=== PATIENT | male | born 1965 | race Caucasian/White ===

== ENCOUNTER 2016-04-13 19:01 | Emergency (ER) | payer MEDICARE ==
[2016-04-13 19:18] VITALS: BP 124/73; PULSE 96; RESP 16; O2SAT 96
--- NOTE | 2016-04-13 20:47 | ED.REPORT ---
HPI-URI / Cough / Cold Date of Service Apr 13, 2016 ED Provider: MD Kendall This is 50 year old male who is an everyday smoker with a history of chronic hip pain presenting to the emergency department complaining of cough that began 3 days ago. Describes productive cough, dyspnea, and pain with inspiration. Denies fever, chills, nausea, vomiting, abdominal pain, diarrhea, constipation, or sore throat. Nursing Notes Stated Complaint: HURTS TO BREATH Chief Complaint: Respiratory Complaints Nursing Notes Reviewed: Yes Allergies: Coded Allergies: No Known Allergies (Unverified Allergy, Unknown, 06/18/15) No Active Prescriptions or Reported Meds General Time Seen by MD: 20:47 Chief Complaint Cough, productive... Hx Obtained From: Patient Arrived By: Walk-in Onset Occurred: 3 days ago Symptom Duration: Since onset Severity: Current: Mild Pertinent Negative: Pt denies other symptoms Recent Healthcare: No recent doctor visit, No recent hospitalization Similar Sx Previous: No Past Medical History Past Medical History Chronic hip pain Arthritis Past Surgical History none reported Smoking History Current Every Day Smoker Social History Alcohol Use: Denies alcohol use Drug Use: Denies drug use Ambulatory Status Independent Review of Systems Constitutional: Denies: Chills, Fever Ears / Nose / Throat: Denies: Sore throat Respiratory: Reports: Dyspnea on exertion, Prod cough, white, Shortness of breath GI: Denies: Abdominal pain, Nausea, Vomiting Complete sys rev & neg: except as marked. Physical Exam Initial Vital Signs Vital Signs (First) Date Time Temp Pulse Resp B/P Pulse Ox O2 Delivery O2 Flow Rate FiO2 04/13/16 19:18 36.6 96 16 124/73 96 Room Air 04/13/16 22:15 3 Initial VS: Reviewed Head / Eyes: Atraumatic, Normocephalic, PERRL Cardiovascular: Regular rate & rhythm, Heart sounds normal, Intact distal pulses Extremities: Vascular intact, Neuro intact, No swelling, No tenderness Skin: Warm, Dry, No cyanosis Neurologic: Alert, Oriented, Nonfocal Psychiatric: Mood/affect normal, Behavior normal, Normal thought content General/Constitutional: Awake, Alert ENT: Airway patent, Mucous membranes moist, Pharynx NL, Tympanic membs NL, Ext aud canal NL, Nose exam NL, No sinus tenderness Resp Distress / Stridor: Positive: Resp distress mild Wheezing / Retractions: Positive: Wheeze insp/exp diffuse Neck: Supple, No meningismus, Full range of motion, No adenopathy, No swelling , Non-tender, No JVD Cardiovascular: Heart rate NL, Regular rhythm, Heart sounds NL, Cap refill not delayed, Peripheral circulation NL, Pulses = bilaterally Interpretation & Diagnostics Interpretation & Diagnostics: CHEST X-RAY IMPRESSION: 1. An oval density in the left lower lung zone suspicious for focal pneumonia. Recommend followup chest x-ray to resolution. 2. Old granulomatous disease in the right lower lung zone. Dictated by: Harsh Coffey M.D. on 04/13/2016 at 21:13 Approved by: Harsh Coffey M.D. on 04/13/2016 at 21:14 CT ANGIO CONCLUSION: No CT evidence of PE. Pleural based pneumonia in the lingula. Pronounced emphysema. There is some fluid within the bronchi of the right middle lobe. emphysema. Lab Results Interpretation Result Diagram: 04/13/16212704/13/162127 Test 04/13/16 21:28 04/14/16 00:45 White Blood Count 11.7th/mm3 (3.8-10.1) Red Blood Count 4.48mil/mm3 (4.40-5.80) Hemoglobin 13.2g/dL (13.8-17.2) Hematocrit 39.1% (41.0-50.0) Mean Corpuscular Volume 87.3fL (81-100) Mean Corpuscular Hemoglobin 29.5pg (27.0-35.0) Mean Corpuscular Hemoglobin Concent 33.8% (32.0-37.0) Red Cell Distribution Width 13.6% (12.3-15.4) Platelet Count 286bil/L (150-400) Neutrophils (%) (Auto) 76.7% (40-74) Lymphocytes (%) (Auto) 12.1% (14-46) Monocytes (%) (Auto) 9.6% (4-12) Eosinophils (%) (Auto) 1.0% (0-5) Basophils (%) (Auto) 0.4% (0-3) D-Dimer 2.0mg/L (<0.50) Sodium Level 132mEq/L (134-144) Potassium Level 4.3mEq/L (3.5-5.2) Chloride Level 93mEq/L (97-108) Carbon Dioxide Level 27mmol/L (18-29) Blood Urea Nitrogen 8mg/dL (6-24) Creatinine 0.62mg/dL (0.76-1.27) Estimat Glomerular Filtration Rate 145mL/min (>59) Glucose Level 112mg/dL (60-99) Calcium Level 8.5mg/dL (8.5-10.1) Total Bilirubin 0.5mg/dL (0.0-1.2) Aspartate Amino Transf (AST/SGOT) 35U/L (0-50) Alanine Aminotransferase (ALT/SGPT) 35U/L (0-44) Alkaline Phosphatase 107U/L (25-150) Pro-B-Type Natriuretic Peptide 206.0pg/mL (0-121) Total Protein 8.4g/dL (6.4-8.4) Albumin 3.3g/dL (3.4-5.0) Hold Kaplan Top Tube Received (Received) Troponin T 0.010ug/L (0.0-0.011) ECG Interpretation ECG Interpretation: NSR at a rate of 85 Left atrial enlargement Time: 22:54 Interpreted by: ED physician Re-Eval/Medical Decision Med Decision/Clinical Course 50-year-old heavy smoker presents with pleuritic chest pain and cough. He is found to have pneumonia and signs of emphysema. Pulmonary emboli and myocardial infarction were ruled out. His pneumonia severity index score and curb 65 score all commensurate with outpatient treatment. He will be placed on high-dose amoxicillin and doxycycline. Inhalers have been provided as well as a course of prednisone. I do recommend close outpatient follow-up. He is also to follow up with his primary care regarding the CT scan findings. Re-Evaluation/Progress #1: Time of Eval: 22:55 Re-Evaluation/Progress Note: Discussed need for CT Re-Evaluation/Progress #2: Time of Eval: 00:31 Re-Evaluation/Progress Note: Lung shaw clear, discussed CT restults and smoking cessation. Plan for d/c, all questions addressed Counseled Regarding: Diagnosis, Lab results, Need for follow-up, When/why to return to ED Discharge & Departure Impression: Primary Impression: Pneumonia Pneumonia type: due to unspecified organism Laterality: unspecified laterality Lung location: unspecified part of lung Qualified Code: B99.9 - Unspecified infectious disease Additional Impression: COPD (chronic obstructive pulmonary disease) COPD type: unspecified COPD Qualified Code: J44.9 - Chronic obstructive pulmonary disease, unspecified Disposition: Home Discharge Condition All VS Reviewed: Yes Condition: Stable Patient Instructions: Chronic Obstructive Pulmonary Disease (ED), Community- acquired Pneumonia (ED) Additional Instructions: Take amoxicillin three times a day for 7 days, doxycycline twice daily for 7 days, albuterol 2 puffs every 4 hours, prednisone once daily for 3 days, Percocet 1-2 every 6 hours as needed for pain control. Follow up with your primary care provider in the next 48 hours for further evaluation. Return to the emergency department if you develop any new or worsening shortness of breath or any other symptoms. Your CT scan of the chest demonstrates that she would have emphysema. You need to quit smoking. That is the only thing that is going to prevent further lung damage. Discussed this with her primary care physician as you may need further testing including pulmonary function tests. Referrals: Karin Ga MD (PCP) Scribe Attestation Portions of this note were transcribed by Derek Chowdhury. I, Dr. Argueta personally performed the history, physical exam and medical decision-making; I reviewed and confirmed the accuracy of the information in the transcribed note. Signed by: Derek Chowdhury. 04/13/2016, 03:00. Mayank Argueta DO Apr 13, 2016 20:47 DEREK CHOWDHURY Apr 13, 2016 20:54
[2016-04-13] MEDS ORDERED: HYDROcodone-APAP 5-325 mg Tablet PO ONE (20:50)
[2016-04-13] MEDS ORDERED: 0.9% Sodium Chloride 1,000 ML IV ONE (20:50)
[2016-04-13] MEDS ORDERED: Albuterol-Ipratropium 3 mL Inhalation Solution NEB ONE (20:50)
--- NOTE | 2016-04-13 21:16 | DRSVH ---
PROCEDURE: X-RAY CHEST, TWO VIEWS ([id number]) INDICATIONS: cough, pleuritic pain TECHNIQUE: 2 views of the chest were acquired. COMPARISON: [facility], CR, XR CHEST 1VW (PORTABLE), 06/18/2015, 9:30. FINDINGS: Surgical changes and devices: None. Lungs and pleura: There is an oval density in the left lower lobe suspicious for focal infiltrate. A calcified granuloma in is present in the right lower lung zone. No pleural effusions or pneumothorax . Mediastinum: Mediastinal contours are normal. Heart size is normal. Bones and chest wall: No suspicious bony abnormalities. Soft tissues appear unremarkable. IMPRESSION: 1. An oval density in the left lower lung zone suspicious for focal pneumonia. Recommend followup [address] st x-ray to resolution. 2. Old granulomatous disease in the right lower lung zone. Dictated by: Harsh Coffey M.D. on 04/13/2016 at 21:13 Approved by: Harsh Coffey M.D. on 04/13/2016 at 21:14
[2016-04-13 21:32] VITALS: PULSE 88; RESP 20; O2SAT 97
[2016-04-13] MEDS ORDERED: cefTRIAXone Inj 2,000 MG in Dextrose 5% Minibag Plus 50 ML IV ONE (21:35)
[2016-04-13 21:38] LABS: BASOPHILS % (AUTO) 0.4 % (0-3); MONOCYTES % (AUTO) 9.6 % (4-12); Mean Corpuscular Hemoglobin 29.5 pg (27.0-35.0); Mean Corpuscular Volume 87.3 fL (81-100); NEUTROPHILS % (AUTO) 76.7 % (40-74); Platelet Count 286 bil/L (150-400)
[2016-04-13 22:01] LABS: TROPONIN T 0.01 ug/L (0.0-0.011)
[2016-04-13 22:15] VITALS: BP 118/60; PULSE 83; RESP 16; O2SAT 95
[2016-04-13] MEDS ORDERED: HYDROmorphone 0.5 mg/0.5 mL iSecure Syringe IVPUSH PRN (23:30)
[2016-04-14] MEDS ORDERED: MethylprednisoLONE Sodium Succinate 62.5 mg/mL 2 mL Inj IVPUSH ONE (00:20)
[2016-04-14] MEDS ORDERED: _Albuterol-HFA 60 Puff Inhaler INHALATION PRN (00:35)
[2016-04-14] MEDS ORDERED: _oxyCODONE/APAP 5-325 mg Tablet PO PRN (00:35)
[2016-04-14 02:02] VITALS: BP 134/84; PULSE 78; RESP 14; O2SAT 97
--- NOTE | 2016-04-14 10:09 | DRSVH ---
PROCEDURE: CT ANGIO CHEST PULMONARY EMBOLISM ([id number]) INDICATIONS: pleuritic chest pain, elevated ddimer TECHNIQUE: After the administration of intravenous contrast, 2 mm thick sections acquired from the pulmonary api ozzy to the posterior costophrenic angles. 3-dimensional maximum intensity projection (MIP) coronal a nd sagittal reformats were then acquired through the thorax. For radiation dose reduction, the follo wing was used: automated exposure control, adjustment of mA and/or kV according to patient size. COMPARISON: None. FINDINGS: Image quality: Excellent. Pulmonary arteries: Pulmonary arteries are normal in size, and demonstrate no intraluminal filling d efects to suggest central pulmonary embolism. Lungs and pleura: Calcified right lower lobe granuloma is noted. There is a 3 mm AP by 24 mm transver se area of opacification within the lingula. No pleural effusions or pneumothorax. Central and perip heral airways are patent. Emphysematous changes are present. Mediastinum: Heart size is normal, without pericardial effusion. 14 mm left hilar lymph node is pres ent. Thoracic aorta is normal in caliber and enhancement. Esophagus is normal in caliber, without hi atal hernia. Bones and chest wall: No suspicious bony lesions. Ribs and thoracic spine appear intact throughout. Thyroid gland is unremarkable. No axillary or supraclavicular adenopathy. Abdomen: Visualized upper abdominal solid organs appear normal in the early arterial phase of enhanc ement. IMPRESSION: 1. No evidence of pulmonary embolus. 2. Consolidative opacity within the lingula. This could represent developing airspace disease such as pneumonia. However, other etiologies cannot be excluded recommend interval followup after resolution after appropriate therapy is present underlying mass lesion. 3. 14 mm left hilar lymph node. This could be reactive in nature. However, followup is recommended as indicated. Dictated by: Thea Fair M.D. on 04/14/2016 at 10:03 Approved by: Thea Fair M.D. on 04/14/2016 at 10:07
== END 2016-04-14 02:00 | disposition home or self-care (01) ==
LOC: SED 19:01
DX: J18.9 Pneumonia, unspecified organism (principal); J44.9 Chronic obstructive pulmonary disease, unspecified; R07.81 Pleurodynia; F17.200 Nicotine dependence, unspecified, uncomplicated
CPT/HCPCS: 36415; 71020; 71275; 80053; 83880; 84484; 85025; 85379; 93005; 94640; 96361; 96365; 96375; 99285; J0696; J1170; J2930; J7030; J7620; Q9967

== ENCOUNTER 2016-06-25 21:43 | Emergency (ER) | payer MEDICARE ==
[~2016-06-25] VITALS: Ht 165.1 cm; Wt 54.5 kg
[2016-06-25 21:57] VITALS: BP 149/86; PULSE 60; RESP 20; O2SAT 97
[2016-06-25 22:58] LABS: BASOPHILS % (AUTO) 0.7 % (0-3); EOSINOPHILS % (AUTO) 2.2 % (0-5); MONOCYTES % (AUTO) 10.1 % (4-12); Mean Corpuscular Hemoglobin 29.7 pg (27.0-35.0); Mean Corpuscular Volume 85.6 fL (81-100); NEUTROPHILS % (AUTO) 64.1 % (40-74); Platelet Count 311 bil/L (150-400)
--- NOTE | 2016-06-25 23:13 | ED.REPORT ---
HPI-Chest Pain 40 and Over Date of Service June 25, 2016 ED Provider: Dr. Mayank Argueta D.O. A 50 year old male with a history including chronic hip pain, arthritis, COPD, CO, and IV drug use presents to the ED with pleuritic left chest pain onset three days ago. The patient denies cough, fever, or other symptoms. He last used IV heroin this morning. The patient has had similar pain associated with pneumonia in the past. Nursing Notes Stated Complaint: LUNG PAIN Chief Complaint: Chest Pain Nursing Notes Reviewed: Yes Allergies: Coded Allergies: No Known Allergies (Unverified Allergy, Unknown, 06/18/15) No Active Prescriptions or Reported Meds General Time Seen by MD: 23:13 Chief Complaint Chest pain Hx Obtained From: Patient Arrived By: Walk-in Sudden in Onset?: No Onset Occurred: 3 days ago Symptom Duration: Since onset Location: : Chest left Quality: Painful, Pleuritic Severity: Current: Moderate Severity: Maximum: Moderate Pertinent Negative: Relieved by nothing Context Related History: Reports: Myocardial infarction, Pneumonia Recent Healthcare: No recent doctor visit Similar Sx Previous: Yes Past Medical History Past Medical History Chronic hip pain Arthritis COPD CO Past Surgical History None reported Smoking History Current Every Day Smoker Social History Alcohol Use: Denies alcohol use Drug Use: IV drugs (Heroin ), Meth Ambulatory Status Independent Review of Systems Constitutional: Denies: Fever Respiratory: Reports: Pleuritic pain, Denies: Non-productive cough, Shortness of breath Cardiovascular: Reports: Chest pain GI: Denies: Diarrhea, Vomiting Complete sys rev & neg: except as marked. Physical Exam Initial Vital Signs Vital Signs (First) Date Time Temp Pulse Resp B/P Pulse Ox O2 Delivery O2 Flow Rate FiO2 06/25/16 21:57 36.7 60 20 149/86 97 Room Air Initial VS: Reviewed Head / Eyes: Atraumatic, Normocephalic ENT: Conjunctiva normal, No scleral icterus Skin: Warm, Dry Neurologic: Alert, Oriented Psychiatric: Mood/affect normal, Behavior normal General/Constitutional: Awake, Alert Respiratory / Chest: Breath sounds NL, Breath sounds = bilat, No respiratory distress Patient is splinting with respiration Cardiovascular: Regular rhythm, Heart sounds NL Heart Rate / Rhythm: Positive: Tachycardia Neck: Supple, Full range of motion Possible blood clot in left jugular Interpretation & Diagnostics Lab Results Interpretation Result Diagram: 06/25/16 5042 06/25/16 2253 Test 06/25/16 22:53 06/26/16 01:15 White Blood Count 9.7th/mm3 (3.8-10.1) Red Blood Count 4.71mil/mm3 (4.40-5.80) Hemoglobin 14.0g/dL (13.8-17.2) Hematocrit 40.3% (41.0-50.0) Mean Corpuscular Volume 85.6fL (81-100) Mean Corpuscular Hemoglobin 29.7pg (27.0-35.0) Mean Corpuscular Hemoglobin Concent 34.7% (32.0-37.0) Red Cell Distribution Width 13.8% (12.3-15.4) Platelet Count 311bil/L (150-400) Neutrophils (%) (Auto) 64.1% (40-74) Lymphocytes (%) (Auto) 22.7% (14-46) Monocytes (%) (Auto) 10.1% (4-12) Eosinophils (%) (Auto) 2.2% (0-5) Basophils (%) (Auto) 0.7% (0-3) Sodium Level 138mEq/L (134-144) Potassium Level 4.1mEq/L (3.5-5.2) Chloride Level 98mEq/L (97-108) Carbon Dioxide Level 27mmol/L (18-29) Blood Urea Nitrogen 10mg/dL (6-24) Creatinine 0.65mg/dL (0.76-1.27) Estimat Glomerular Filtration Rate 138mL/min (>59) Glucose Level 135mg/dL (60-99) Calcium Level 9.1mg/dL (8.5-10.1) Magnesium Level 2.0mg/dL (1.6-2.6) Total Bilirubin 0.6mg/dL (0.0-1.2) Aspartate Amino Transf (AST/SGOT) 51U/L (0-50) Alanine Aminotransferase (ALT/SGPT) 42U/L (0-44) Alkaline Phosphatase 86U/L (25-150) Total Protein 7.8g/dL (6.4-8.4) Albumin 3.4g/dL (3.4-5.0) Hold Kaplan Top Tube Received (Received) Troponin T 0.010ug/L (0.0-0.011) ECG Interpretation ECG Interpretation: Sinus tachycardia rate 107 Probable left atrial enlargement Low voltage, extremity leads Time: 22:28 Interpreted by: ED physician X-Ray Chest Interpretation Chest Xray Interpretation: MPRESSION: No acute process. Dictated by: Kyaw Johnson M.D. on 06/26/2016 at 7:24 View: Portable, 1 view Interpretation / Wet Read by: Interpret - Radiologist CT Chest Interpretation IMPRESSION: 1. No acute process. No pulmonary embolus. 2. Emphysema. 3. Small hiatal hernia. Dictated by: Kyaw Johnson M.D. on 06/26/2016 at 7:53 Study type: CT pulm angiogram Interpretation / Wet Read by: Interpret - Radiologist Re-Eval/Medical Decision Med Decision/Clinical Course 3 days of pleuritic chest pain and cough. Pulmonary embolism ruled out. Myocardial infarction ruled out. Aortic dissection and pneumothorax ruled out. We will place him on a course of doxycycline. Recommend outpatient follow-up. Source of Hx: Old records Time of Eval: 01:45 Patient Status: Condition improved Re-Evaluation/Progress Note: Discussed with patient CT, lab, and x-ray results, diagnosis, and plan for discharge. Follow-up and return to the ER instructions given. Patient agrees with plan for care and all questions were addressed. Counseled Regarding: Diagnosis, Lab results, Need for follow-up, When/why to return to ED Discharge & Departure Primary Impression: Pleuritic chest pain Disposition: Home Discharge Condition All VS Reviewed: Yes Condition: Improved Patient Instructions: Acute Bronchitis (GEN) Additional Instructions: Thank you for entrusting us with your care. The CAT scan did not show evidence of a blood clot or pneumonia. You do have mucus plugging consistent with COPD and bronchitis. It is essential that you never smoke. I also recommend that you stop abusing heroin and other injection drugs. Take doxycycline as instructed, twice daily for seven days. Call your primary care provider on Monday for a follow-up appointment. You may need further diagnostics including a stress test. Return to the ER with any new or worsening symptoms. Contact [facility] for evaluation for drug treatment/withdrawal help. Referrals: Karin Ga MD (PCP) [facility] Scribe Attestation Portions of this note were transcribed by Mendy Curtis. I, Dr. Argueta, personally performed the history, physical exam, and medical decision-making; I reviewed and confirmed the accuracy of the information in the transcribed note. Signed by: Edis Arreguin, 06/26/2016, 17:45 copies to: Karin Ga MD ; [facility] Mayank Argueta DO June 25, 2016 23:13 MENDY CURTIS June 25, 2016 23:21
[2016-06-25 23:19] LABS: TROPONIN T 0.01 ug/L (0.0-0.011)
[2016-06-26] MEDS ORDERED: HYDROcodone-APAP 5-325 mg Tablet PO ONE (01:50)
[2016-06-26 02:57] VITALS: BP 162/82; PULSE 82; RESP 18; O2SAT 97
--- NOTE | 2016-06-26 07:28 | DRSVH ---
PROCEDURE: X-RAY CHEST ONE VIEW, PORTABLE ([id number]) INDICATIONS: CHEST PAIN TECHNIQUE: One view of the chest was acquired. COMPARISON: [facility], CT, CT ANGIO CHEST PE, 06/26/2016, 0:20. [facility], CR, XR CHEST 2VW, 04/13/2016, 20:57. FINDINGS: Surgical changes and devices: None. Lungs and pleura: No pleural effusions or pneumothorax. Lungs are clear. Mediastinum: Mediastinal contours appear normal. Heart size is normal. Bones and chest wall: No suspicious bony lesions. Overlying soft tissues appear unremarkable. IMPRESSION: No acute process. Dictated by: Kyaw Johnson M.D. on 06/26/2016 at 7:24 Approved by: Kyaw Johnson M.D. on 06/26/2016 at 7:26
--- NOTE | 2016-06-26 07:59 | DRSVH ---
PROCEDURE: CT ANGIO CHEST PULMONARY EMBOLISM ([id number]) INDICATIONS: pleuritic chest pain, IVDA, Jugular clot TECHNIQUE: After the administration of intravenous contrast, 2 mm thick sections acquired from the pulmonary api ozzy to the posterior costophrenic angles. 3-dimensional maximum intensity projection (MIP) coronal a nd sagittal reformats were then acquired through the thorax. For radiation dose reduction, the follo wing was used: automated exposure control, adjustment of mA and/or kV according to patient size. COMPARISON: [facility], CR, XR CHEST 2VW, 04/13/2016, 20:57. [facility], CR, XR CHEST 1VW (PORTABLE), 06/25/2016, 22:11. [facility], CT, CT ANGIO CHEST PE, 04/13/2016 , 23:46. FINDINGS: Image quality: Excellent. Pulmonary arteries: Pulmonary arteries are normal in size, and demonstrate no intraluminal filling d efects to suggest central pulmonary embolism. Lungs and pleura: Moderate to severe emphysema with apical predominance is present. Calcified granulo ma within the right lower lobe. No pleural effusions or pneumothorax. Central and peripheral airways are patent. Mediastinum: Heart size is normal, without pericardial effusion. No mediastinal or hilar adenopathy . Thoracic aorta is normal in caliber and enhancement. Esophagus is normal in caliber. No change in small hiatal hernia. Bones and chest wall: No suspicious bony lesions. Ribs and thoracic spine appear intact throughout. Thyroid gland is within normal limits. No axillary or supraclavicular adenopathy. Abdomen: Visualized upper abdominal solid organs appear normal in the early arterial phase of enhanc ement. IMPRESSION: 1. No acute process. No pulmonary embolus. 2. Emphysema. 3. Small hiatal hernia. Dictated by: Kyaw Johnson M.D. on 06/26/2016 at 7:53 Approved by: Kyaw Johnson M.D. on 06/26/2016 at 7:57
== END 2016-06-26 02:59 | disposition home or self-care (01) ==
LOC: SED 21:43
DX: R07.81 Pleurodynia (principal); J44.9 Chronic obstructive pulmonary disease, unspecified; I25.2 Old myocardial infarction; F17.200 Nicotine dependence, unspecified, uncomplicated
CPT/HCPCS: 36415; 71010; 71275; 80053; 83735; 84484; 85025; 93005; 96374; 96375; 99285; J1885; Q9967

== ENCOUNTER 2016-07-27 20:39 | Inpatient (IN) | payer MEDICARE, MEDICAID ==
[~2016-07-27] VITALS: Ht 165.1 cm; Wt 51.8 kg
[~2016-07-27 20:39] MED LIST: Piperacillin-Tazo 3.375 Gm Inj 3.375 GM in Dextrose 5% Minibag Plus 50 ML IV ONE
[2016-07-27 20:45] VITALS: BP 134/81; PULSE 95; RESP 16
[2016-07-27] MEDS ORDERED: 0.9% Sodium Chloride 1,000 ML IV ONE (22:06)
[2016-07-27] MEDS ORDERED: Vancomycin Dose per Pharmacist XX ONE (22:35)
[2016-07-27 22:36] LABS: BASOPHILS % (AUTO) 0.1 % (0-3); EOSINOPHILS % (AUTO) 2.2 % (0-5); MONOCYTES % (AUTO) 9.5 % (4-12); Mean Corpuscular Hemoglobin 29.9 pg (27.0-35.0); Mean Corpuscular Volume 87.2 fL (81-100); NEUTROPHILS % (AUTO) 74.3 % (40-74); Platelet Count 238 bil/L (150-400)
[2016-07-27] MEDS ORDERED: Vancomycin Inj 1,000 MG in IV Premix 1 EACH IV ONE (22:40)
--- NOTE | 2016-07-27 22:42 | ED.REPORT ---
HPI-Rash / Abscess Date of Service Jul 27, 2016 ED Provider: Doc,Ed MD The patient is a 50 yo male with history of active IV drug use, life long smoker , and chronic hip pain who presents to the ED for left facial swelling and pain onset 4-6 days ago. Patient noted "a pimple" on his left cheek about 4-6 days ago and tried to pop it, but no discharge or pus came out. The next day, there was some mild facial swelling, but it got worse today. The swelling spread to his left eye and now he can't open it. He reports intermittent fever, but does not know the exact temperature. Other associated symptoms include mild headache , chills, and watery eye discharge. He admits to Heroin injection 2 days [address] Dilaudid for the hip pain. He was diagnosed with cellulitis on the left face 3 times in the past, but has never been hospitalized for it. He denies any form of trauma or previous history of MRSA. Of note, patient states that he had some abdominal pain, nausea, vomiting, and diarrhea a couple days ago and all of those symptoms have resolved. He takes Aspirin as needed for hip pain. Nursing Notes Stated Complaint: POSSIBLE CELLULITIS Chief Complaint: Skin Rash/Abscess Nursing Notes Reviewed: Yes Allergies: Coded Allergies: No Known Allergies (Unverified Allergy, Unknown, 06/18/15) No Active Prescriptions or Reported Meds General Time Seen by MD: 21:55 Chief Complaint Red area, Tender/swollen area Hx Obtained From: Patient Arrived By: Walk-in Onset Occurred: 4 days ago Symptom Duration: Since onset Location: : Head/face (left check and eye) Quality: Fullness, Painful Severity: Current: Moderate Severity: Maximum: Moderate Associated with: Reports Facial swelling, Reports Fever, Reports Headache, Reports Shaking chills, Denies Abdominal pain, Denies Conjunctivitis, Denies Dizziness, Denies Vomiting Pertinent Negative: Pt denies other symptoms Pertinent Negative: Exacerbated by nothing, Relieved by nothing Related History: Reports: Prior similar rash Recent Healthcare: No recent hospitalization Similar Sx Previous: Yes Past Medical History Past Medical History Chronic hip pain Arthritis COPD [place] Past Surgical History None reported Family History denies anything significant Smoking History Current Every Day Smoker Social History Alcohol Use: Denies alcohol use Drug Use: IV drugs, Meth, Other (Dilaudid) Ambulatory Status Independent Review of Systems Basic Review of Systems Neurologic: NL mental status, No weakness, No numbness Psychiatric: Normal thought content Constitutional: Reports: Chills, Fever, Denies: Lethargy Eyes: Reports: Blurred left, Discharge left (watery), Redness left Ears / Nose / Throat: Denies: Earache bilateral, Nasal congestion, Sinus problem, Sore throat, Throat pain, Tongue swelling, Voice change Respiratory: Denies: Dyspnea on exertion, Shortness of breath, Wheezing Cardiovascular: Denies: Chest pain, Edema, Palpitations, Syncope GI: Denies: Abdominal pain, Anorexia, Constipation, Melena, Nausea, Vomiting Musculoskeletal: Reports: Extremity pain, Joint pain, Denies: Back pain, Neck pain Skin: Reports Rash, Reports Swelling Complete sys rev & neg: except as marked. Physical Exam Initial Vital Signs Vital Signs (First) Date Time Temp Pulse Resp B/P Pulse Ox O2 Delivery O2 Flow Rate FiO2 07/27/16 20:45 37 95 16 134/81 Room Air Initial VS: Reviewed, Vital signs normal Head / Eyes: Atraumatic, Normocephalic, PERRL Cardiovascular: Regular rate & rhythm, Heart sounds normal, Intact distal pulses Neurologic: Alert, Oriented, Nonfocal General/Constitutional: Awake, Alert Distress / Hydration: Positive: Distress moderate Appearance / Presentation: Positive: Appears older than age Rash / Lesion Notes: Significant erythema and swelling around left periorbital and maxillary area with induration. Left eye is shut closed. Firm and warm to palpation. Small dry red spot on the cheek with no discharge. No flunctuance. Some erythema in the neck. Track astorga noted on neck and bilateral arms. Head / Eyes: Atraumatic, Normocephalic Eyelids: Positive: Edema L... (both upper and lower) Periorbital: Positive: Erythema L, Periorbital swelling L... (Moderate), Periorbital tender L... (Moderate), Swelling is lateral Chemosis noted on the left eye ENT: Atraumatic, Airway patent, Tympanic membs NL Respiratory / Chest: Atraumatic, Breath sounds NL, No respiratory distress, No wheezing, No retractions, No stridor Rales / Rhonchi: Positive: Rales bilateral bases Cardiovascular: Heart rate NL, Regular rhythm, Heart sounds NL, No murmurs Neck: Atraumatic, Full range of motion, No adenopathy, Non-tender Abdomen: Atraumatic, Soft, Non-tender, No guarding, No rebound, BS normoactive , No distention Interpretation & Diagnostics Lab Results Interpretation Result Diagram: 07/27/16222907/27/162229 Test 07/27/16 22:30 White Blood Count 15.7th/mm3 (3.8-10.1) Red Blood Count 4.69mil/mm3 (4.40-5.80) Hemoglobin 14.0g/dL (13.8-17.2) Hematocrit 40.9% (41.0-50.0) Mean Corpuscular Volume 87.2fL (81-100) Mean Corpuscular Hemoglobin 29.9pg (27.0-35.0) Mean Corpuscular Hemoglobin Concent 34.2% (32.0-37.0) Red Cell Distribution Width 13.9% (12.3-15.4) Platelet Count 238bil/L (150-400) Neutrophils (%) (Auto) 74.3% (40-74) Lymphocytes (%) (Auto) 13.5% (14-46) Monocytes (%) (Auto) 9.5% (4-12) Eosinophils (%) (Auto) 2.2% (0-5) Basophils (%) (Auto) 0.1% (0-3) Band Neutrophils % 0% (1-5) Sodium Level 135mEq/L (134-144) Potassium Level 3.6mEq/L (3.5-5.2) Chloride Level 98mEq/L (97-108) Carbon Dioxide Level 22mmol/L (18-29) Blood Urea Nitrogen 10mg/dL (6-24) Creatinine 0.46mg/dL (0.76-1.27) Estimat Glomerular Filtration Rate 205mL/min (>59) Glucose Level 112mg/dL (60-99) Lactic Acid Level 0.7mmol/L (0.4-2.0) Calcium Level 8.8mg/dL (8.5-10.1) Total Bilirubin 0.9mg/dL (0.0-1.2) Aspartate Amino Transf (AST/SGOT) 32U/L (0-50) Alanine Aminotransferase (ALT/SGPT) 35U/L (0-44) Alkaline Phosphatase 104U/L (25-150) Total Protein 7.7g/dL (6.4-8.4) Albumin 3.2g/dL (3.4-5.0) Lab Results Interpretation: Leukocytosis with no significant shift Normal lactic acid and CMP US Soft Tissue/Musculoskeletal Bedside U/S showed some fluid collection underneath the red spot on the cheek. CT Maxillofacial Impression: Inflammatory changes of the left face at the level of the maxilla extending superiorly adjacent to the left orbit in the preseptal distribution. No evidence of post-septal extension. No fluid collection. No evidence of extension of the deep spaces of the neck or osseous involvement. Radiologist: Nitish Garibay M.D. Exam Performed by: ED physician Indication: Swelling, Redness, Pain Views: Skin & subcut tissue Re-Eval/Medical Decision Med Decision/Clinical Course 50 yo male with history of active IV drug use, life long smoker, and chronic hip pain who presents to the ED for left facial swelling and pain onset 4-6 days ago. The swelling started after he attempted to pop a "pimple" on his face , resulting in increasing swelling on the left check and now periorbital swelling. Other associated symptoms include intermittent fever, chills, and headache. Patient is an active IV drug user and last injected Heroin 2 days ago. He has recurrent facial cellulitis on the same side with the last incident was 2 years ago. He was treated with outpatient Clindamycin then. On exam, there is significant soft tissue swelling and erythema with induration from his left maxilla up to his orbit. Eye exam show chemosis on the left eye. The erythema extends down to his anterior neck, but no swelling noted in the neck. Patient reports no vision loss in the left eye. Track astorga noted on forearms and neck. Labs: Leukocytosis with no significant shift Normal lactic acid and CMP Blood culture pending CT Maxillofacial Impression: Inflammatory changes of the left face at the level of the maxilla extending superiorly adjacent to the left orbit in the preseptal distribution. No evidence of post-septal extension. No fluid collection. No evidence of extension of the deep spaces of the neck or osseous involvement. Given his history and all these findings, patient is diagnosed with severe left preseptal and facial celllulitis. Although he does not meet the sepsis criteria , he should be admitted to the hospital for IV antibiotic. We initiated broad- spectrum antibiotics (Vanco and Zosyn) with 1 L of NS in the ER. Patient does not complain of significant pain, but requests to have Aspirin for his hip pain as this is what he takes at home. We give him a dose of oral Tylenol 950mg instead and he has no further complaint. Re-Evaluation/Progress : Time of Eval: 00:15 Patient Status: Condition unchanged Re-Evaluation/Progress Note: Lab and imaging results discussed with the patient and the need for admission to the hospital. Patient agreed to admission plan. Patient has 1L of NS and Vanco IV running. Zosyn IV is still pending from pharmacy. Consultation : Referral / Consult Name: Eloina Reyes DO Consulted With: Hospitalist Requested Call at: 00:22 Call Returned at: 00:40 [employer]: Will see patient, Agrees with eval, Accepts admit Differential Diagnosis: Positive: Abscess, Cellulitis, MRSA Severity: Serious condition Diagnosis Appears: Evident Counseled Regarding: Diagnosis, Lab results, Need for admission Discharge & Departure Shift Change Sign-Out Response to Therapy: Discussed Impression: Primary Impression: Facial cellulitis Additional Impressions: Preseptal cellulitis of left eye Intravenous drug abuse Disposition: ADMITTED TO HOSPITAL Discharge Condition All VS Reviewed: Yes Condition: Stable Additional Instructions: Per hospitalist team Referrals: Karin Ga MD (PCP) Attending Statement As attending of record for this patient, I conducted an independent history and physical exam, and I concur with the documentation in the resident note above, and as amended. Bridger Choudhury DO Jul 27, 2016 22:09 Murtaza Tejeda MD Jul 28, 2016 05:32
[2016-07-28] VITALS (9 sets, daily range): BP systolic 138–169; BP diastolic 75–87; PULSE 60–74; RESP 14–20; O2SAT 94–98
[2016-07-28] MEDS ORDERED: Piperacillin-Tazo 3.375 Gm Inj 3.375 GM in Dextrose 5% Minibag Plus 50 ML IV ONE (00:25)
[2016-07-28] MEDS ORDERED: Ondansetron 2 mg/mL 2 mL Inj IVPUSH PRN (01:35)
[2016-07-28] MEDS ORDERED: Alum-Mag Hydrox-Simeth 30 mL Suspension PO PRN ×2 (01:35→05:45)
--- NOTE | 2016-07-28 03:47 | PCM.HPMED ---
Subjective Date of Service Jul 28, 2016 Primary Provider: Admitting Physician: Eloina Reyes DO Primary Care Physician: Karin Ga MD Attending Physician: Eloina Reyes DO Admit Status: From the Emergency Department Chief Complaint: facial swelling History of Present Illness: 50yoM with past medical history of COPD, IVDU, CAD and tobacco dependence admitted with sepsis secondary to preseptal cellulitis Over the past weekend Mr. Ngo states that he has been having worsening left sided facial swelling and edema. It started with an area of skin that felt like something was underneath. He denies picking at the area or any eruptions of the face. He is unaware if he has had any drainage of the nose or purulent fluid from the face. At this time pain is under control and he denies having any recent fevers, chills, nausea, vomiting, lightheadedness or dizziness. Vision is intact and he denies pain with eye movement. As per verbal report, CT scan shows no fluid collection and preseptal cellulitis. Report is unavailable for review on admission. Chronic pain management has been an ongoing issue with Mr. Ngo. He has been unable to find a PCP that will provide pain medication so he uses heroin to manage pain. Review of Systems: complete review of systems obtained. positive as per HPI otherwise negative Allergies Coded Allergies: No Known Allergies (Unverified Allergy, Unknown, 06/18/15) Home Medications None PMH Chronic hip pain Arthritis COPD [place] Heroin dependence Tobacco dependence Surgical History Finger surgery Family History no known family history as per patient Social History Occupation: not working at this time Hx Alcohol Use: No Hx Substance Use: Yes (last used 07/26 heroin) Hx Tobacco Use: Yes (cigaretts 1/2 pack a day) Smoking Status: Current Every Day Smoker Exam Vital Signs Vital Sign - Last Date Time Temp Pulse Resp B/P Pulse Ox O2 Delivery O2 Flow Rate FiO2 07/28/16 02:00 36.9 74 18 164/84 98 Room Air Intake and Output 07/27/16 07/27/16 07/28/16 Cumulative From/Thru 15:00 23:00 07:00 07/27/16 20:45 - 07/28/16 02:00 Intake Total 1000 ml 1000 ml Balance 1000 ml 1000 ml Intake IV Total 1000 ml 1000 ml Exam General: Alert, Oriented X3, Cooperative, No acute Distress Eyes: PERRLA, Scleral Anicteric, left erythema / edema, discharge, vision intact Mouth: Mouth Normal, Mucous Membranes Moist/Energy Neck: Supple, no Thyromegaly, trachea central. Chest & Lungs: Clear to auscultation & percussion, No adventitious breath sounds, no crackles, no wheeze, anterior exam, good respiratory effort Cardiovascular: Normal S1, Normal S2, No Murmurs/Rubs/Gallops, tachy/ reg Rhythm Pulses: Radial (present and equal), Dorsalis Pedi (present and equal) GI: Soft, Non-tender, Non-distended, Normoactive bowel tones. Musculoskeletal: difficulties with ambulation, using a cane, no erythema or edema of joints Extremities: no edema, no cyanosis, no clubbing. Skin: No rashes. Warm and dry, no erythematous areas Neurological: Grossly neurologically intact, Normal Speech, Sensation Intact Lymphatic: Lymph nodes Cervical and Axillary not palpable Lab and Diagnostics Result Diagram: 07/27/16222907/27/162229 Assessment & Plan 50yoM with past medical history of COPD, IVDU, CAD and tobacco dependence admitted with sepsis secondary to preseptal cellulitis Sepsis, acute, POA -HR>90, WBC >12 -secondary to facial cellulitis -treatment as below Preseptal cellulitis, acute, POA -CT scan without evidence of fluid collection -vision intact no pain with eye movement -piperacillin-tazobactam / vancomycin started in Ed. Continue. -pharmacy to dose vancomycin -consult ENT if not improved Elevated glucose, acute, POA -no history of diabetes -hgbA1c pending Opioid dependence, chronic, POA -history of IVDU, patient states chronic pain is not managed by outpatient provider -monitor for withdrawal -clonidine PRN, lorazepam PRN -consideration to PO pain management for hip arthritis Tobacco dependence, chronic, POA -discussed smoking cessation -patient is a life long smoker and wishes to quit -nicotine patch available upon request Pain Evaluation: Adequate Pain Control GI Prophylaxis: Not indicated VTE Prophylaxis: Sub-Q Heparin (Unfractionated) Resuscitation Status: CPR: Attempt Resuscitation Eloina Reyes DO Jul 28, 2016 03:47
[2016-07-28] MEDS: Vancomycin Dose per Pharmacist XX SCH ×2 (04:20→08:30)
--- NOTE | 2016-07-28 04:49 | PCM.CONPHA ---
Subjective Date of Service: Jul 28, 2016 Requesting Provider: Eloina Reyes DO facial swelling Reason for Pharmacy Consult: Vancomycin Dosing Objective Vital Signs Date Time Temp Pulse Resp B/P Pulse Ox O2 Delivery O2 Flow Rate FiO2 07/28/16 02:00 36.9 74 18 164/84 98 Room Air 07/28/16 01:56 36.8 72 16 138/81 97 Room Air 07/28/16 01:19 36.8 72 16 138/81 97 Room Air 07/27/16 20:45 37 95 16 134/81 Room Air Intake and Output 07/26/16 07/27/16 07/28/16 00:00 00:00 00:00 Intake Total 1000 ml Balance 1000 ml Weight (Kilograms): 51.800 Height (Feet): 5 Height (Inches): 5.00 Test 07/27/16 22:30 White Blood Count 15.7th/mm3 (3.8-10.1) Red Blood Count 4.69mil/mm3 (4.40-5.80) Hemoglobin 14.0g/dL (13.8-17.2) Hematocrit 40.9% (41.0-50.0) Mean Corpuscular Volume 87.2fL (81-100) Mean Corpuscular Hemoglobin 29.9pg (27.0-35.0) Mean Corpuscular Hemoglobin Concent 34.2% (32.0-37.0) Red Cell Distribution Width 13.9% (12.3-15.4) Platelet Count 238bil/L (150-400) Neutrophils (%) (Auto) 74.3% (40-74) Lymphocytes (%) (Auto) 13.5% (14-46) Monocytes (%) (Auto) 9.5% (4-12) Eosinophils (%) (Auto) 2.2% (0-5) Basophils (%) (Auto) 0.1% (0-3) Band Neutrophils % 0% (1-5) Sodium Level 135mEq/L (134-144) Potassium Level 3.6mEq/L (3.5-5.2) Chloride Level 98mEq/L (97-108) Carbon Dioxide Level 22mmol/L (18-29) Blood Urea Nitrogen 10mg/dL (6-24) Creatinine 0.46mg/dL (0.76-1.27) Estimat Glomerular Filtration Rate 205mL/min (>59) Glucose Level 112mg/dL (60-99) Lactic Acid Level 0.7mmol/L (0.4-2.0) Calcium Level 8.8mg/dL (8.5-10.1) Total Bilirubin 0.9mg/dL (0.0-1.2) Aspartate Amino Transf (AST/SGOT) 32U/L (0-50) Alanine Aminotransferase (ALT/SGPT) 35U/L (0-44) Alkaline Phosphatase 104U/L (25-150) Total Protein 7.7g/dL (6.4-8.4) Albumin 3.2g/dL (3.4-5.0) Assessment/Plan Assessment/Plan A: * Vancomycin dosing by pharmacy for 50 y/o man with sepsis secondary to facial cellulitis * The patient received a 1000 mg IV vancomycin dose in the ED * He is also being started on Zosyn * Estimated CrCl for the patient is 107 mL/min (Cockcroft & Gault) * Estimated vancomycin half-life is 7 hours and estimated Vd is 36 liters P: * Start vancomycin 1000 mg IV every 12 hours * Target a vancomycin trough range of 15 - 20 mcg/mL for now * Draw a trough level prior to the fourth dose Thank you. Pharmacy will continue to follow this patient. Macey Hensley Jul 28, 2016 04:48
[2016-07-28] MEDS ORDERED: Polyethylene Glycol (PEG) 17 Gm Powder PO PRN (05:45)
[2016-07-28 06:45] LABS: BASOPHILS % (AUTO) 0.2 % (0-3); EOSINOPHILS % (AUTO) 2.8 % (0-5); MONOCYTES % (AUTO) 11.2 % (4-12); Mean Corpuscular Hemoglobin 30.1 pg (27.0-35.0); Mean Corpuscular Volume 88.5 fL (81-100); NEUTROPHILS % (AUTO) 71.4 % (40-74); Platelet Count 211 bil/L (150-400)
--- NOTE | 2016-07-28 07:21 | NUR ---
Admit Patient arrived to unit at 0100 via able to transfer self to bed. Oriented to room, video played. Admission done to best of ability as patient was poor historian and had difficulty staying awake. Admits to injecting Heroin less than two days ago. Sharps container removed prior to arrival. Patient comfortable at this time, and denies any pain and or discomfort. Bed in low position, wheels locked and call light within reach.
[2016-07-28] MEDS ORDERED: 0.9% Sodium Chloride 250 ML ONE ×2 (08:17→19:53)
--- NOTE | 2016-07-28 08:20 | DRSVH ---
PROCEDURE: CT FACE WITH CONTRAST ([id number]) INDICATIONS: Facial Abscess TECHNIQUE: After the administration of intravenous contrast, 3.0 mm axial sections acquired from the mid-neck to the frontal sinuses, with coronal reformatting. For radiation dose reduction, the following was use d: automated exposure control. COMPARISON: None. FINDINGS: Image quality: Excellent. Soft tissues: There is left preorbital/premaxillary soft tissue swelling and abnormal enhancement con sistent with cellulitis. There is subcutaneous edema. No masses, or fluid collections. No enlarged l ymph nodes. Vascular: Visualized vascular structures appear patent throughout. Bony vascular foramina and canal s appear normal. Bones: Facial bones appear intact, without fractures, erosions, or destruction. Visualized portions of the skull base and auditory canals also appear normal. Sinuses: There is left maxillary sinus mucosal thickening. Mastoid air cells are aerated. IMPRESSION: 1. Left facial cellulitis. 2. No drainable subcutaneous fluid collectios. 3. Left maxillary sinus mucosal thickening consistent with chronic sinusitis. No significant discrepancy with the section weaver radiology preliminary report. Dictated by: Harsh Coffey M.D. on 07/28/2016 at 8:14 Approved by: Harsh Coffey M.D. on 07/28/2016 at 8:18
[2016-07-28] MEDS: Vancomycin Inj 1,000 MG in IV Premix 1 EACH IV SCH ×2 (08:29→20:23)
[2016-07-28] MEDS: Heparin 5,000 Unit/mL Inj SUBQ SCH ×2 (08:30→16:30)
--- NOTE | 2016-07-28 09:25 | PCM.PNMED ---
Subjective Date of Service Jul 28, 2016 Subjective Semi sleeping in bed. Patient says the redness and facial swelling no better or worse since admission. Does not appear to be in pain out of control. Some nausea. Exam Vital Signs Vital Sign - Last Date Time Temp Pulse Resp B/P Pulse Ox O2 Delivery O2 Flow Rate FiO2 07/28/16 06:15 36.7 63 16 169/87 97 Room Air Intake and Output 07/27/16 07/27/16 07/28/16 Cumulative From/Thru 14:59 22:59 06:59 07/27/16 20:45 - 07/28/16 02:00 Intake Total 1000 ml 1000 ml Balance 1000 ml 1000 ml IV Total 1000 ml 1000 ml Exam Thin patient. HENT; adequate hydration, no active oral lesions CV; reg no murmur Resp; Clear anteriorly GI; soft and non acute, Neuro; CN 2-12 intact, no focal neuro deficits Skin; Redness an swelling left side face, up to eye level not quite reaching the prox ear, down to jaw line; ink astorga applied this AM Lab and Diagnostics Result Diagram: 07/28/16 0535 07/28/16 0535 Assessment & Plan 50yoM with past medical history of COPD, IVDU, CAD and tobacco dependence admitted with sepsis secondary to preseptal cellulitis 1. Sepsis, acute, POA, resolving -HR>90, WBC >12 -secondary to facial cellulitis -treatment as below 2. Preseptal cellulitis, acute, POA, active -CT scan without evidence of fluid collection -vision intact no pain with eye movement -piperacillin-tazobactam / vancomycin started in Ed. Continue. Day # 2 3; Elevated glucose, acute, POA -no history of diabetes -hgbA1c pending 4. Opioid dependence, chronic, POA -history of IVDU, patient states chronic pain is not managed by outpatient provider -monitor for withdrawal -clonidine PRN, IV lorazepam PRN -on oxycodone 10 q 6 for pain, dosed for opiod tolerant patient -social service 5. Tobacco dependence, chronic, POA -discussed smoking cessation -patient is a life long smoker and wishes to quit -nicotine patch available upon request GI Prophylaxis: Not indicated VTE Prophylaxis: Sub-Q Heparin (Unfractionated) Resuscitation Status: CPR: Attempt Resuscitation Krissy Israel MD Jul 28, 2016 09:25
[2016-07-28] MEDS: Piperacillin-Tazo 3.375 Gm Inj 3.375 GM in Dextrose 5% Minibag Plus 50 ML IV SCH ×2 (10:23→18:16)
--- NOTE | 2016-07-28 10:48 | NUR ---
Case Management- IMM explained and signed by patient. Copy given to patient. Original placed in chart. Cele Banegas RN/UR
[2016-07-28] MEDS: HYDROmorphone PCA 0.2 mg/mL 30 mL Inj IV PRN ×3 (12:34→19:59)
[2016-07-28] MEDS: Ondansetron 2 mg/mL 2 mL Inj IVPUSH PRN ×2 (13:56→19:08)
--- NOTE | 2016-07-28 14:32 | NUR ---
Social Work: Initial Assessment D: EMR reviewed. Pt is a 50 y/o male admitted for left facial cellulitis. SW met with pt and bedside to conduct initial assessment. Pt was alert and oriented x3. Pt confirmed he has not completed DPOA/advanced directive ppw and declined any further information. Pt's primary contact is his father, Uriel Ngo ([phone]), and can be contacted for discharge planning. Pt's insurance is Medicare and PCP is Karin Ga MD. Pt has no HH or SNF hx. Pt does not have LTC insurance or VA benefits. Pt owns and uses a [employer] and no other DME. Pt states he is independent with ADLs. SW reviewed pt's EMR and noticed that pt has hx of IVDU. SW asked pt if he would be interested in meeting our chemical dependency provider and pt declined. SW asked pt if he would like resources related to IVDU, such as the needle exchange, and pt declined. Pt confirmed his father will provide transport home via POV when medically stable. SW does not anticipate any discharge needs at this time but will continue to follow if needs arise. A: Pt who is independent at baseline. P: Pt likely to discharge home with father via POV when medically stable. Pt declined CD resources/assessment. SW does not anticipate any discharge needs at this time but will continue to follow if needs arise. DAKOTA Mcclain Addendum: 07/28/16 at 1439 by KEVIN VIZCARRA SS Amended: Links added.
--- NOTE | 2016-07-28 14:47 | NUR ---
Pt lives in a 5 story apartment, on the fifth floor, with an elevator. Pt does not have to use stairs to access apartment.
--- NOTE | 2016-07-28 16:55 | NUR ---
Anxiety/nausea/vomiting / shakiness Patient with increased anxiety this am stating "I'm going through withdrawal I need to go home " pt was given oxycodone for facial pain rated 6/10 . 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 Pt with nausea , vomiting , arm tremors when extended. Pt offered Ativan for anxiety but refused. Pt with left facial/eye redness and swelling noted.
[2016-07-29] VITALS (13 sets, daily range): BP systolic 122–139; BP diastolic 74–79; PULSE 66–87; RESP 14–20; O2SAT 94–98
[2016-07-29] MEDS: Ondansetron 2 mg/mL 2 mL Inj IVPUSH PRN (01:22)
[2016-07-29] MEDS: HYDROmorphone PCA 0.2 mg/mL 30 mL Inj IV PRN ×6 (01:22→22:46)
[2016-07-29] MEDS: Piperacillin-Tazo 3.375 Gm Inj 3.375 GM in Dextrose 5% Minibag Plus 50 ML IV SCH ×3 (01:37→20:14)
[2016-07-29] MEDS: Heparin 5,000 Unit/mL Inj SUBQ SCH ×3 (01:38→17:34)
--- NOTE | 2016-07-29 03:47 | NUR ---
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 EXPLAINED PROTOCOL. ALSO PUT EDUCATION DEPARTMENT REGISTRAR ON AND EXPLAINED WHY. PT HAS EPISODE OF VOMITING, REC'D PRN ZOFRAN AND HAD SNACK OF APPLESAUCE. PT STATES HE HAD NOT EATEN ALL DAY DUE TO NAUSEA/VOMITING. SWELLING TO LEFT CHEEK HAS DECREASED. PT ABLE TO OPEN EYE MORE THIS SHIFT. PT SPONTANEOUSLY STARTED TO TELL NURSE ABOUT HIS HEROIN USE AND WHY HE USES. STATES HE WANTS TO QUIT BUT THE PAIN IN HIS HIPS IS TOO MUCH TO DEAL WITH AND UNTIL HE HAS HIP REPLACEMENTS THIS IS HOW HE IVONNE. PT DENIED OFFER OF SS TO SEE HIM FOR ASSIST IN GETTING HELP.
--- NOTE | 2016-07-29 07:35 | PCM.PNMED ---
Subjective Date of Service Jul 29, 2016 Subjective Resting in bed. We started a dilaaudid THEATRE INSTRUCTOR with resulting better pain control and is helping with withdrawal also. Not eating very much or drinking much water No other problems noted. Exam Vital Signs Vital Sign - Last Date Time Temp Pulse Resp B/P Pulse Ox O2 Delivery O2 Flow Rate FiO2 07/29/16 06:34 37.1 87 18 139/79 94 Room Air Intake and Output 07/28/16 07/28/16 07/29/16 Cumulative From/Thru 15:00 23:00 07:00 07/27/16 20:45 - 07/29/16 06:34 Intake Total 0 ml 1056 ml 833 ml 2889 ml Output Total 325 ml 550 ml 400 ml 1275 ml Balance -325 ml 506 ml 433 ml 1614 ml Intake Oral 0 ml 600 ml 275 ml 875 ml IV Total 456 ml 558 ml 2014 ml Output Urine Total 325 ml 550 ml 400 ml 1275 ml # Bowel Movements 0 0 1 1 Exam Thin patient. HENT; adequate hydration, no active oral lesions CV; reg no murmur Resp; Clear anteriorly GI; soft and non acute, Neuro; CN 2-12 intact, no focal neuro deficits Skin; Redness an swelling left side face, up to eye level not quite reaching the prox ear, down to jaw line; Redness has receded a bit from ink lines, swelling less, no obvious drainable collection Lab and Diagnostics Result Diagram: 07/28/1635 07/28/16 0535 Assessment & Plan 50yoM with past medical history of COPD, IVDU, CAD and tobacco dependence admitted with sepsis secondary to preseptal cellulitis 1. Sepsis, acute, POA, -On further review patient does not meet sepsis criteria, while the wbc meets this criteria, the single isolated pulse > 100 was only once on arrival to ER. -this diagnosis will be removed 2. Preseptal cellulitis, acute, POA, improving -CT scan without evidence of fluid collection -vision intact no pain with eye movement -piperacillin-tazobactam / vancomycin started in Ed. Continue. Day # 2 3. Pain management, active -on Dilaudid THEATRE INSTRUCTOR, opioid tolerant person -pain under adequate control 3; Elevated glucose, acute, POA -no history of diabetes -hgbA1c = 5.8 4. Opioid dependence, chronic, POA -history of IVDU, patient states chronic pain is not managed by outpatient provider -mild withdrawal -clonidine PRN, IV lorazepam PRN -social service 5. Tobacco dependence, chronic, POA -discussed smoking cessation -patient is a life long smoker and wishes to quit -nicotine patch available upon request GI Prophylaxis: Not indicated VTE Prophylaxis: Sub-Q Heparin (Unfractionated) Resuscitation Status: CPR: Attempt Resuscitation Krissy Israel MD Jul 29, 2016 07:34
[2016-07-29] MEDS ORDERED: Vancomycin Serum Trough XX ONE (08:00)
[2016-07-29 08:09] LABS: BASOPHILS % (AUTO) 0.2 % (0-3); EOSINOPHILS % (AUTO) 0.4 % (0-5); Mean Corpuscular Hemoglobin 30.3 pg (27.0-35.0); Mean Corpuscular Volume 86.3 fL (81-100); NEUTROPHILS % (AUTO) 82.5 % (40-74); Platelet Count 249 bil/L (150-400)
[2016-07-29] MEDS: Vancomycin Dose per Pharmacist XX SCH (08:30)
[2016-07-29] MEDS: Vancomycin Inj 1,250 MG in 0.9% Sodium Chloride 250 ML IV SCH ×2 (10:45→23:05)
--- NOTE | 2016-07-29 15:59 | NUR ---
PAIN/ACTIVITY Patient stated that his pain is "Up there". Rating it between 7-8/10 on his R eye and chronically on his hips. Oxicodone 10 mg PO + STARCH CRAB Dilaudid is being used for pain control. Patient stated that his pain is a little better after the Oxicodone. Via FELDT scale patients pain level is 0-2/10 after his pain medication. Tolerating liquids PO and her diet well. Denies nausea. No emesis noted. Denies SOB. Ambulates with SBA and his cane. Tolerated activity fairly. Patient has not had any behavioral issues at this time. Care continues.
--- NOTE | 2016-07-29 19:34 | NUR ---
CRITICAL LAB VALUE + blood culture. Dr. Israel made aware via cookpaging.
[2016-07-30] VITALS (9 sets, daily range): BP systolic 139–160; BP diastolic 74–85; PULSE 62–73; RESP 16–20; O2SAT 93–98
[2016-07-30] MEDS: Heparin 5,000 Unit/mL Inj SUBQ SCH ×3 (01:42→16:43)
[2016-07-30] MEDS: Piperacillin-Tazo 3.375 Gm Inj 3.375 GM in Dextrose 5% Minibag Plus 50 ML IV SCH ×3 (01:43→16:44)
--- NOTE | 2016-07-30 02:35 | NUR ---
PAIN; USING MUFFLER TENDER dilaudid for cheek pain with fair to moderate relief. Requests oxycondone when ever is it time and given. Dozing off and on this shift.
[2016-07-30] MEDS: Ondansetron 2 mg/mL 2 mL Inj IVPUSH PRN (02:36)
[2016-07-30] MEDS: HYDROmorphone PCA 0.2 mg/mL 30 mL Inj IV PRN ×6 (03:14→23:40)
--- NOTE | 2016-07-30 07:51 | PCM.PNMED ---
Subjective Date of Service Jul 30, 2016 Subjective No problems overnight. Patient feels facial swelling a bit better, pain under control for the most part with the dilaudid DIAZO TECHNICIAN. Unfortunately the 2 blood cultures are positive for gram pos cocci, no h/o MRSA per patient. Exam Vital Signs Vital Sign - Last Date Time Temp Pulse Resp B/P Pulse Ox O2 Delivery O2 Flow Rate FiO2 07/30/16 04:44 36.9 63 20 160/85 93 Room Air Intake and Output 07/29/16 07/29/16 07/30/16 Cumulative From/Thru 15:00 23:00 07:00 07/27/16 20:45 - 07/30/16 06:14 Intake Total 1527 ml 991 ml 5407 ml Output Total 400 ml 1350 ml 3025 ml Balance 1127 ml -359 ml 2382 ml Intake Oral 910 ml 540 ml 2325 ml IV Total 617 ml 451 ml 3082 ml Output Urine Total 400 ml 1350 ml 3025 ml # Bowel Movements 1 Exam Thin patient. HENT; adequate hydration, no active oral lesions CV; reg obvious murmur noted, no JVD no edema Resp; Clear anteriorly GI; soft and non acute, Neuro; CN 2-12 intact, no focal neuro deficits Skin; Redness an swelling left side face, up to eye level not quite reaching the prox ear, down to jaw line continue to improve but very slowly so far, but somewhat better. Lab and Diagnostics Result Diagram: 07/29/16 0800 07/29/16 0800 Assessment & Plan 50yoM with past medical history of COPD, IVDU, CAD and tobacco dependence admitted with sepsis secondary to preseptal cellulites 1. Preseptal cellulitis, acute, POA, improving -CT scan without evidence of fluid collection -vision intact no pain with eye movement -piperacillin-tazobactam / vancomycin started in Ed. Continue. Day # 3 -repeat lab in AM 2. Bacteremia, poa, active -2 blood cultures positive gram pos cocci -repeat blood cultures till clear -continue with current Vanc and Zosyn -consider ID consult Monday -TTE ordered 3. Pain management, active -on Dilaudid DIAZO TECHNICIAN, opioid tolerant person -pain under adequate control 4. Elevated glucose, acute, POA -no history of diabetes -hgbA1c = 5.8 5. Opioid dependence, chronic, POA -history of IVDU, patient states chronic pain is not managed by outpatient provider -mild withdrawal -clonidine PRN, IV lorazepam PRN -social service 6. Tobacco dependence, chronic, POA -discussed smoking cessation -patient is a life long smoker and wishes to quit -nicotine patch available upon request GI Prophylaxis: Not indicated VTE Prophylaxis: Sub-Q Heparin (Unfractionated) Resuscitation Status: CPR: Attempt Resuscitation Krissy Israel MD Jul 30, 2016 07:51
[2016-07-30] MEDS: Vancomycin Dose per Pharmacist XX SCH (08:30)
--- NOTE | 2016-07-30 08:30 | NUR ---
Chest Pain Pt stated that he had 4/10 chest pain and discomfort on the left side of his chest. When asked if it is a new pain he stated "Not new from yesterday." Asked pt if he was having anxiety and he stated "no, maybe I am having a heart attack." Notified MD. Ordered a STAT EKG. Pt was informed that a test was going to be performed and he stated that the chest pain had dissipated. Pt has no further c/o of chest pain. Will continue to monitor.
[2016-07-30] MEDS: Vancomycin Inj 1,250 MG in 0.9% Sodium Chloride 250 ML IV SCH (10:10)
[2016-07-30] MEDS ORDERED: 0.9% Sodium Chloride 100 ML ONE (11:03)
--- NOTE | 2016-07-30 18:49 | NUR ---
Wound Pt stated that his wound started draining. Pt was touching and draining the wound. Serous sanguineous drainage noted. Educated pt on washing hands before and after touching his face. Applied tefla and hypofix tape to wound. Will continue to monitor.
[2016-07-30] MEDS ORDERED: 0.9% Sodium Chloride 250 ML ONE (20:14)
[2016-07-30] MEDS ORDERED: Vancomycin Serum Trough XX ONE (21:00)
[2016-07-30] MEDS: Vancomycin Inj 1,000 MG in IV Premix 1 EACH IV SCH (22:31)
[2016-07-31] VITALS (7 sets, daily range): BP systolic 128–162; BP diastolic 78–85; PULSE 62–86; RESP 16–20; O2SAT 96–99
[2016-07-31] MEDS: Piperacillin-Tazo 3.375 Gm Inj 3.375 GM in Dextrose 5% Minibag Plus 50 ML IV SCH ×3 (01:41→16:27)
[2016-07-31] MEDS: Heparin 5,000 Unit/mL Inj SUBQ SCH ×3 (01:41→16:27)
[2016-07-31 05:33] LABS: BASOPHILS % (AUTO) 0.7 % (0-3); EOSINOPHILS % (AUTO) 3.5 % (0-5); MONOCYTES % (AUTO) 9.6 % (4-12); Mean Corpuscular Hemoglobin 30.1 pg (27.0-35.0); Mean Corpuscular Volume 86.4 fL (81-100); Platelet Count 255 bil/L (150-400)
[2016-07-31 05:57] LABS: ERYTHROCYTE SEDIMENTATION RATE 17 mm/hr (0-30)
[2016-07-31] MEDS: HYDROmorphone PCA 0.2 mg/mL 30 mL Inj IV PRN ×4 (06:06→20:50)
[2016-07-31] MEDS: Vancomycin Inj 1,000 MG in IV Premix 1 EACH IV SCH ×2 (06:13→14:00)
--- NOTE | 2016-07-31 07:31 | PCM.PNMED ---
Subjective Date of Service Jul 31, 2016 Subjective Patient being cooperative so far and amenible to treatment. Blood culture positive time 2, gram neg rods, gram variable rods,, anerobic bottles. Eating OK, no fever. Exam Vital Signs Vital Sign - Last Date Time Temp Pulse Resp B/P Pulse Ox O2 Delivery O2 Flow Rate FiO2 07/31/16 04:27 36.3 62 16 162/85 97 Room Air Intake and Output 07/30/16 07/30/16 07/31/16 Cumulative From/Thru 15:00 23:00 07:00 07/27/16 20:45 - 07/31/16 05:26 Intake Total 1237 ml 540 ml 7184 ml Output Total 700 ml 200 ml 3925 ml Balance 537 ml 340 ml 3259 ml Intake Oral 880 ml 540 ml 3745 ml IV Total 357 ml 3439 ml Output Urine Total 700 ml 200 ml 3925 ml # Bowel Movements 1 0 2 Exam Thin patient. HENT; adequate hydration, no active oral lesions CV; reg obvious murmur noted, no JVD no edema Resp; Clear anteriorly GI; soft and non acute, Neuro; CN 2-12 intact, no focal neuro deficits Skin; Redness an swelling left side face improving as is the swelling, but now with small open area with purulent drainage, center of cheek Lab and Diagnostics Result Diagram: 07/31/16 0520 07/31/16 0520 Assessment & Plan 50yoM with past medical history of COPD, IVDU, CAD and tobacco dependence admitted with sepsis secondary to preseptal cellulites 1. Preseptal cellulitis, acute, POA, improving -CT scan without evidence of fluid collection -vision intact no pain with eye movement -piperacillin-tazobactam / vancomycin started in Ed. Continue. Day # 4 -do culture on drainage -surgical evaluation for I&D 2. Bacteremia, poa, active -2 blood cultures gram pos rods and gram variable tommy, both anerobic bottles -repeat blood cultures till clear -continue with current Vanc and Zosyn -ID consult Monday, ordered -TTE ordered 3. 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 Elevated glucose, acute, POA -no history of diabetes -hgbA1c = 5.8 5. Opioid dependence, chronic, POA -history of IVDU, patient states chronic pain is not managed by outpatient provider -mild withdrawal -clonidine PRN, IV lorazepam PRN -social service 6. Tobacco dependence, chronic, POA -discussed smoking cessation -patient is a life long smoker and wishes to quit -nicotine patch available upon request GI Prophylaxis: Not indicated VTE Prophylaxis: Sub-Q Heparin (Unfractionated) Resuscitation Status: CPR: Attempt Resuscitation Krissy Israel MD Jul 31, 2016 07:31
[2016-07-31] MEDS: Vancomycin Dose per Pharmacist XX SCH (08:30)
--- NOTE | 2016-07-31 10:47 | NUR ---
Ang Pt was discovered with E. cig. Explained to pt the policy of the hospital and that we needed to have him send the e.cig home with family or we can lock it in the drawer. Pt did not want to give up the e.cig. Offered pt nicotine patch. Pt threatening to leave [facility]. Explained to pt the risks of leaving without finishing antibiotics. Pt stated "I can get antibiotics on the street." Explained to the pt that he needs antibiotics that are tailored to the bacteria that his body is growing. Pt gave up the e cig. E cig is locked in the medication drawer. Pt declines using nicotine patch. stamp collector and MD aware of situation. Will continue to monitor and keep comfortable. Addendum: 07/31/16 at 1200 by JERMAIN THURSTON RN Pts girlfriend took the e. cig home on her way out of the hospital.
--- NOTE | 2016-07-31 12:29 | NUR ---
SHLOMO signed at bedside. Fauzia Lomeli ART DEALER
--- NOTE | 2016-07-31 15:07 | CONS ---
[address] [address] CONSULTATION REPORT PATIENT: LUCIANA VORA : 1965 MR#: [id number] ADMIT: 07/28/2016 JOB ID: [id number] DATE OF SERVICE: 07/31/2016 CHIEF COMPLAINT/IDENTIFICATION: Dr. Israel has asked me to consult on this 50-year-old man regarding a possible left facial abscess. HISTORY OF PRESENT ILLNESS: The patient was admitted three days ago through the emergency department with several days of progressive left-sided facial swelling and edema with a clinical diagnosis of periorbital cellulitis. At that time, he had imaging demonstrating no drainable abscess, but yesterday, apparently there was spontaneous drainage of what was felt to be pus from his left face and I am asked to see him regarding consideration of further surgical procedure. On questioning the patient, he tells me that his vision was somewhat inhibited by the infection on admission and is less so at this point. He also notes that his left facial pain is decreased. PAST MEDICAL HISTORY: Includes IV drug use, COPD, coronary artery disease. Continued tobacco use. MEDICATIONS: None. ALLERGIES: None. SOCIAL HISTORY: Currently using heroin, currently smoking, does not drink alcohol on a daily basis. FAMILY HISTORY/REVIEW OF SYSTEMS: Per admitting note. PHYSICAL EXAMINATION: He is afebrile, his vital signs are within normal limits. Direct examination to his left face shows marked induration and swelling of the left face, primarily centering around his upper cheek with extension around his orbit. He has an open weeping wound on the skin with purulent and proteinaceous material on the dressing. There is no particular fluctuance or expressible pus though much of the skin area is weeping proteinaceous fluid and edema. LABORATORY DATA: His white count was 15.7 on admission and is down to 11. Microbiology has demonstrated two positive blood cultures for gram-positive rods. Gram stain of the fluid from his spontaneous drainage shows a few polys and no organisms on Gram stain. IMAGING: I have reviewed the report and the face CT from July 27, which shows extensive facial cellulitis and periorbital and premaxillary soft tissue edema but no fluid collections that would require draining. IMPRESSION AND PLAN: A 50-year-old male with a history of intravenous drug use who now has a significant left periorbital and facial cellulitis that seems to be responding to antibiotics. I do not appreciate any abscess cavity that needs to be drained at this point. He seems to be clinically improving. If there is to be any operative intervention in this area, it may be best to involve an ENT and/or Ophthalmology opinion prior to going to the operating room. I will discuss this with Dr. Israel. General Surgery will only follow this patient on a daily basis if he requests that.
--- NOTE | 2016-07-31 15:42 | NUR ---
Social Work- Continued D/C Planning Data: EMR reviewed. Pt is on day 3 of hospitalization for L Facial Cellulitis per H&P. Pt is not medically stable for discharge, anticipate discharge in 3-4 days. Surgery has been consulted for I & D, ID is consulted to determine pt's course of abx. MD to determine IV or PO abx at discharge, per MD in rounds he is hopeful it will be PO abx. SW continues to follow for abx needs. Pt is SBA in room. Pt to discharge home with father to transport via POV. SW will continue to follow. Assessment: Pt who will require abx at discharge. Plan: SW awaiting MD order for IV vs. PO abx. ID to consult Monday. Pt to discharge home with father to transport via POV. SW will continue to follow. Fauzia Lomeli MSW
[2016-07-31] MEDS ORDERED: Vancomycin Serum Trough XX ONE (22:00)
[2016-07-31] MEDS ORDERED: Vancomycin Inj 1,000 MG in IV Premix 1 EACH IV ONE (23:26)
--- NOTE | 2016-07-31 23:52 | PCM.PHAPRO ---
Progress Date of Service: Jul 31, 2016 Requesting Provider: Eloina Reyes DO facial swelling facial abscess A/ - 50 y/o male patient is on day 4th of Vancomycin and Zosyn for facial abscess which not drainable - Afebrile throughout this admission, WBC: 11 (15.7 @admission 07/27), Blood cultures showed positive for Gram positive tommy, but fluid collected from the wound showed no organism - Vancomycin started at 1G iv q12h (07/27), changed to 1250mg iv q12h on 07/29 with trough of 6, then 1G iv q8h on 07/30 with trough of 11.6 (07/30) and 18.9 today P/ - Trough level is in high end of target range, plus the risk of medication accumulation; Give Vancomycin 1G iv tonight dose, then 750 mg iv q8h starts at 8am 08/01 Pharmacy will continue to follow daily Thank you Jackson Sharif Jul 31, 2016 23:52
[2016-08-01] MEDS: Heparin 5,000 Unit/mL Inj SUBQ SCH ×2 (00:15→08:12)
[2016-08-01] MEDS: Piperacillin-Tazo 3.375 Gm Inj 3.375 GM in Dextrose 5% Minibag Plus 50 ML IV SCH (02:03)
[2016-08-01] MEDS: HYDROmorphone PCA 0.2 mg/mL 30 mL Inj IV PRN ×2 (02:06→08:12)
[2016-08-01 03:15] VITALS: RESP 18
--- NOTE | 2016-08-01 03:25 | NUR ---
cellulitis face less swollen tonight. 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 Found patient to be squeezing the drainage from small open area on cheek stating he wants this crap out of there. Clean dressings brought to room for patient use since he frequently manipulates facial dressings. Restless for first half of shift then settled down.
[2016-08-01 05:10] VITALS: BP 130/71; PULSE 67; RESP 16; O2SAT 99
[2016-08-01 06:30] VITALS: RESP 20
[2016-08-01] MEDS ORDERED: Vancomycin Inj 750 MG in 0.9% Sodium Chloride 250 ML IV SCH (08:00)
[2016-08-01] MEDS: Vancomycin Dose per Pharmacist XX SCH (08:06)
[2016-08-01 08:43] VITALS: RESP 18; O2SAT 98
--- NOTE | 2016-08-01 10:18 | NUR ---
Hospital Policy Went into pts room this AM to explain to him that we needed to lock up his belongings in his closet d/t hospital policy bc he stated on admit that he had recently used heroin. Pt became quite annoyed with this and stated "take this out of my arm (referring to his IV) I'm leaving." With that pt ripped IV out of his arm. drslove and tegaderudy applied. Dr. Pina made aware who came to see pt and tried to convince him to stay telling him that he had bacterima and needed antibiotics. Dr Osuna was also alerted and saw pt right away. Dalbavancin ordered x1. Pt may or may not stay for this. Primary nurse ZO franco and RENITA Mena involved in care. Of note wet process technician was in room at the time at which the pt refused to let her do the ultrasound.
--- NOTE | 2016-08-01 10:30 | CONS ---
[address] [address] CONSULTATION REPORT PATIENT: LUCIANA VORA : 1965 MR#: [id number] ADMIT: 07/28/2016 JOB ID: [id number] DATE OF SERVICE: 08/01/[address] Eleno Pina for this consult. REASON FOR CONSULTATION: Left facial abscess with positive blood cultures for strep mutans in an IV drug user. 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 The patient was admitted to this facility back on July 28, three days ago, with a several day history of left facial swelling, pain, and edema. He felt like there was something burning underneath the skin in his left cheek area and it gradually worsened and became red, inflamed, and quite tender with some Leno salad type drainage from a pustular area in the center of the wound. This area eventually involved much of his left face and started to close off his left eye. Because of this he presented to the hospital and was admitted. Oddly, he states he had no associated fevers, chills, sweats, pulmonary or GI complaints. The patient was started on vancomycin and Zosyn which he has remained on over the weekend with some improvement in the left face. Unfortunately, the patient has not had a good relations with the nursing staff and is now planning to leave [facility] within the next few minutes. I was called urgently to see what discharge antibiotics might be reasonable in this gentleman who just now was reported to have positive blood cultures for Strep mutans and who was just about to leave. PAST MEDICAL HISTORY: 1. Chronic hip pain apparently due to avascular necrosis, left greater than right. 2. COPD. 3. Coronary artery disease with history of NV. 4. Narcotic addiction with intermittent intravenous drug use. 5. History of hepatitis C by his report, status of that is unknown at this point. SOCIAL HISTORY: The patient is a cigarette smoker. Not currently working. He does not drink alcohol. He does use intravenous heroin and used some just before admission. He had withdrawal after admission. FAMILY HISTORY: No history of tuberculosis in 1st degree relatives. REVIEW OF SYSTEMS: Was done. The patient states he has no significant headache or visual change, though he did have diminished vision of his left eye when he came in. It has now improved with treatment of his cellulitis of the left face. He denies decreased visual acuity. Denies any sores in the mouth or poor dentition. No sore throat is noted. No significant cough, shortness of breath, or chest pain is noted. No nausea vomiting, diarrhea. No abdominal swelling. No dysuria. No swelling of the lower extremities. Remainder of the review of systems is negative. PHYSICAL EXAMINATION: Reveals an afebrile gentleman, he has been afebrile since admission. Temp 36.6, pulse 67, respiratory rate 18, blood pressure 130/71, saturating 98% on room air. He is a somewhat thin chronically ill-appearing gentleman who is quite thin with a BMI of 19. He walks with a cane with great difficulty secondary to hip pain. He is currently somewhat agitated and demanding to leave because of disputes he has been having with the nursing staff. Examination of the head reveals no acute trauma, no temporal wasting. His left eye is mildly injected and erythematous, but has normal extraocular movements and vision. No conjunctival hemorrhages are noted. The nose appears normal. The oral cavity has teeth in fair, but not great repair. There is no obvious gingivitis or pharyngitis. The neck is without adenopathy. The neck is supple. Lungs are clear. Back is straight and without tenderness. Cardiac tones regular rate and rhythm without murmur. Abdomen is soft, nontender, without obvious organomegaly or ascites. Lower extremities without edema. No evidence of synovitis. Neurologically, the patient is intact and that he can stand and walk without difficulty and has good strength, but does have quite severe pain in his degenerating hips which limit his ambulation. No skin rash or peripheral stigmata of endocarditis are noted. DATA: White blood count 15,700 on admission, now down to 11,000, normal diff. Sed rate is 17. Creatinine 0.55. Procalcitonin 0.12. Vancomycin trough 19. HIV is pending. 2/ blood cultures from admission grew Strep mutans interestingly. MRSA smear of the nose negative. Blood cultures negative. The fascial draining lesion was just cultured and has a few polys and no organisms on the Gram stain. The culture unfortunately is only 1-day-old and we have no growth. IMAGING: Includes a face CT that was done. He has left facial cellulitis. No drainable abscess is seen. There is some evidence of left maxillary chronic sinusitis. Older x-rays on this patient determined a great deal of deformity of the left hip secondary to avascular necrosis. There is also some rather severe right hip osteoarthritis. IMPRESSION: This is an unfortunate case of a gentleman who is admitted basically with left facial cellulitis, which is actually improving since admission by his report. I failed to mention in my physical exam but the left face is quite abnormal in that it is erythematous and warm with about 3 cm of induration right in the middle of the left cheek. In the very center of this inflamed area there is a small pinhole and purulent fluid can be easily expressed from it. Overall, this certainly has the appearance of a staphylococcal purulent abscess so it is quite odd that his blood cultures are growing strep mutans. This of course raises the possibility of endocarditis though strep mutans would not be a typical organism causing endocarditis in an IV drug user and there is no murmur or stigmata of endocarditis whatsoever at this point. Ideally we would keep the patient in the hospital and do serial blood cultures as well as echocardiography, but also will wait the culture from the facial drainage. Unfortunately none of this will be possible as the patient is planning to leave [facility] within the next couple hours if we can even keep him here that long. I am not certain as to his reliability in terms of taking oral antibiotics and I am concerned of course, that a mid facial infection can have some serious consequences, if not inadequate treated including the possibility of orbital abscess or cavernous sinus thrombosis with infection. In the absence of any really good alternatives in this patient who is about to leave [facility] we will give in a dose of dalbavancin so at least he will still have two weeks of staph and strep coverage on board. He has already indicated he plans to follow up with his primary care doctor within the next 24 hours to see what to do about this, and I think that is a reasonable plan. RECOMMENDATIONS: 1. Dalbavancin times 1.5 g IV immediately. 2. I have discussed in detail with the patient reasons he should stay in the hospital, but he is not going to. 3. We have attempted to emphasize to the patient the value of staying here at least for another hour or two until he gets an IV and gets a dose of dalbavancin. Note that the patient just before I arrived had pulled out his IV, because of his impatience with [facility] discharge process. Thank you very much for this consult. Infectious Disease will be signing off now. If the patient should stay or get readmitted do not hesitate to call me.
--- NOTE | 2016-08-01 10:38 | NUR ---
ABX Kartikbavancin order IV by Dr. Webster; Went in to speak with pt regarding this. Pt states Dr. Webster told him it was a shot. Called Dr. webster to clarify the order to which Dr. Webster stated that he told the pt that it was an IV medication and that we would need to start a new IV on him. Went back into pts room to explain this to him to which he stated that we were all lying to him bc he was originally told it was a shot. Explained to pt that this was a very expensive medication to make and that I needed to know if he was going to allow us to start a new IV on him. I also told him that it did take approx 30-45 mins to mix and then another 1 hour to give. He stated that his ride was already on their way. However he did call them while I was in the room to check to see if his ride would wait for him but also told them that we were liars and that I told him I would have him out of here in 1 hour (which I clearly did not.) Pt states that he doesn't want to wait and promptly left with all belongings and walker. Security here on the floor to escort pt out. Pt left AMA at 1028.
--- NOTE | 2016-08-01 11:31 | NUR ---
AMA Patient informed of the risks of leaving AMA, which included but not limited to increase in infection and pain and possible . Patient signed AMA paperwork at 0910. Patient removed IV. IV intact. MD at bedside informing patient of risk of leaving and benefits of staying and receiving antibiotics. Patient gathered all belongings. Security escorted patient out at 1035. Addendum: 08/01/16 at 1136 by JEREMY TOURE RN Assessment not completed this shift.
--- NOTE | 2016-08-01 14:59 | NUR ---
Social Work: Discharge D: EMR review. Per RN notes, patient informed of the risks of leaving AMA, which included but not limited to increase in infection and pain and possible . Patient signed AMA paperwork at 0910. Patient removed IV. IV intact. MD at bedside informing patient of risk of leaving and benefits of staying and receiving antibiotics. Patient gathered all belongings. Security escorted patient out at 1035. A: Pt who left hospital AMA P: Patient signed AMA paperwork at 0910. Patient removed IV. IV intact. MD at bedside informing patient of risk of leaving and benefits of staying and receiving antibiotics. Patient gathered all belongings. Security escorted patient out at 1035. DAKOTA Mcclain
--- NOTE | 2016-08-01 22:35 | PCM.DC.MED ---
Discharge Summary Date of Service Aug 01, 2016 Dates of Hospitalization Date of Hospital Admission Jul 28, 2016 at 01:18 Date of Discharge: Aug 01, 2016 Providers: Admitting Physician: Eliona Reyes DO Primary Care Physician: Karin Ga MD Attending Physician: Eloina Reyes DO Diagnosis at Time of Discharge Diagnosis at Time of Discharge Facial cellulitis, bacteremia secondary to gram-negative strep mutans, elevated glucose, chronic pain, IVDU Consultations Infectious diseases, general surgery Procedures XRay, CTs & MRIs [facility] Diagnostic Imaging Department PROCEDURE: CT FACE WITH CONTRAST ([id number]) INDICATIONS: Facial Abscess IMPRESSION: 1. Left facial cellulitis. 2. No drainable subcutaneous fluid collectios. 3. Left maxillary sinus mucosal thickening consistent with chronic sinusitis. 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 Dictated by: Harsh Coffey M.D. on 07/28/2016 at 8:14 Approved by: Harsh Coffey M.D. on 07/28/2016 at 8:18 Cardiac Echo Impression Was ordered but not performed over the weekend. Echo test pending today Brief History 50yoM with past medical history of COPD, IVDU, CAD and tobacco dependence admitted with sepsis secondary to preseptal cellulitis Over the past weekend Mr. Ngo states that he has been having worsening left sided facial swelling and edema. It started with an area of skin that felt like something was underneath. He denies picking at the area or any eruptions of the face. He is unaware if he has had any drainage of the nose or purulent fluid from the face. At this time pain is under control and he denies having any recent fevers, chills, nausea, vomiting, lightheadedness or dizziness. Vision is intact and he denies pain with eye movement. As per verbal report, CT scan shows no fluid collection and preseptal cellulitis. Report is unavailable for review on admission. Chronic pain management has been an ongoing issue with Mr. Ngo. He has been unable to find a PCP that will provide pain medication so he uses heroin to manage pain. Hospital Course 50yoM with past medical history of COPD, IVDU, CAD and tobacco dependence admitted with sepsis secondary to preseptal cellulites 1. Preseptal cellulitis, acute, POA, improving -CT scan without evidence of fluid collection -vision intact no pain with eye movement -piperacillin-tazobactam / vancomycin started in Ed. Continue. Day # 4 - Dr. Osuna did a culture on drainage -surgical evaluation for I&D: Surgery has seen the patient determined that patient does not need I&D -- Patient has become agitated this a.m. when staff tried to lock up his belongings (they were required to do so because the patient's IV drug use history) and wanted to leave AGAINST MEDICAL ADVICE. I have told him that he should not be leaving with a bacteremia, he will need IV antibiotics. Called Dr. Osuna, who came and saw the patient, and ordered dalbavancin one time dose. 2. Bacteremia, poa, active -03/26 blood culture bottles grew gram pos rods and gram variable tommy, both anerobic bottles -- f/u cx from 07/30 NGTD -- Vanc anc Zosyn were given -ID consult: Dr. Osuna was in to see the patient after I called him this a.m as patient wanted to leave AMA. Examined the patient, reviewed the cultures: One time dose of Dalbavancin was given -TTE ordered: Due to be performed today: Patient left AGAINST MEDICAL ADVICE 3. 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 Elevated glucose, acute, POA -no history of diabetes -hgbA1c = 5.8 5. Opioid dependence, chronic, POA -history of IVDU, patient states chronic pain is not managed by outpatient provider -mild withdrawal -clonidine PRN, IV lorazepam PRN -social service 6. Tobacco dependence, chronic, POA -discussed smoking cessation -patient is a life long smoker and wishes to quit -nicotine patch available upon request 7. Chronic hip necrosis, osteoarthritis Exam Vital Signs (Last) Date Time Temp Pulse Resp B/P Pulse Ox O2 Delivery O2 Flow Rate FiO2 08/01/16 08:43 18 98 08/01/16 05:10 36.6 67 130/71 Room Air Exam Gen.: Agitated pacing in the room HEENT: Swollen left maxillary area, the pimple itself is very small about less than 1 cm, no active draining Heart: No S3s without murmurs, regular rate and rhythm Lungs: Clear to auscultation no crackles or wheezes Abdomen flat, nondistended Skin: Several track astorga on the arms as well as left neck (he endorses prior IVDU via IJ) Neuro: No focal deficits Psych: Poor insight, mild agitation Test 07/27/16 22:30 07/28/16 05:35 07/31/16 05:20 07/31/16 22:20 Band Neutrophils % 0% (1-5) Lactic Acid Level 0.7mmol/L (0.4-2.0) Total Bilirubin 0.9mg/dL (0.0-1.2) Aspartate Amino Transf (AST/SGOT) 32U/L (0-50) Alanine Aminotransferase (ALT/SGPT) 35U/L (0-44) Alkaline Phosphatase 104U/L (25-150) Total Protein 7.7g/dL (6.4-8.4) Albumin 3.2g/dL (3.4-5.0) Hemoglobin A1c 5.8% (4.8-5.6) White Blood Count 11.0th/mm3 (3.8-10.1) Red Blood Count 4.92mil/mm3 (4.40-5.80) Hemoglobin 14.8g/dL (13.8-17.2) Hematocrit 42.5% (41.0-50.0) Mean Corpuscular Volume 86.4fL (81-100) Mean Corpuscular Hemoglobin 30.1pg (27.0-35.0) Mean Corpuscular Hemoglobin Concent 34.8% (32.0-37.0) Red Cell Distribution Width 13.8% (12.3-15.4) Platelet Count 255bil/L (150-400) Neutrophils (%) (Auto) 60.0% (40-74) Lymphocytes (%) (Auto) 26.0% (14-46) Monocytes (%) (Auto) 9.6% (4-12) Eosinophils (%) (Auto) 3.5% (0-5) Basophils (%) (Auto) 0.7% (0-3) Erythrocyte Sedimentation Rate 17mm/hr (0-30) Sodium Level 137mEq/L (134-144) Potassium Level 3.8mEq/L (3.5-5.2) Chloride Level 102mEq/L (97-108) Carbon Dioxide Level 24mmol/L (18-29) Blood Urea Nitrogen 4mg/dL (6-24) Creatinine 0.55mg/dL (0.76-1.27) Estimat Glomerular Filtration Rate 167mL/min (>59) Glucose Level 98mg/dL (60-99) Calcium Level 8.9mg/dL (8.5-10.1) Procalcitonin 0.10ng/mL (0.00-0.08) Vancomycin Level Trough 18.9mcg/mL Discharge Medications No Active Prescriptions or Reported Meds Time spent 30 min Lola Pina DO Aug 01, 2016 10:09
== END 2016-08-01 10:38 | disposition left against medical advice (07) | DRG 603 ==
LOC: SED 20:39 → OSC 07-28 01:18 → OBSVTOIN 07-28 01:18
PROVIDERS: ADMIT Internal Medicine; ATTEND Internal Medicine
DX: L03.213 Periorbital cellulitis (principal); R78.81 Bacteremia; F11.23 Opioid dependence with withdrawal; G89.29 Other chronic pain; B95.4 Other streptococcus as the cause of diseases classified elsewhere; J44.9 Chronic obstructive pulmonary disease, unspecified; F17.210 Nicotine dependence, cigarettes, uncomplicated; M16.0 Bilateral primary osteoarthritis of hip; I25.10 Atherosclerotic heart disease of native coronary artery without angina pectoris; Z22.322 Carrier or suspected carrier of Methicillin resistant Staphylococcus aureus; I25.2 Old myocardial infarction